=== PATIENT | female | born 1990 | race Caucasian/White ===

== ENCOUNTER 2020-11-06 13:19 | Outpatient (REF) | payer MEDICAID, SELFPAY | END 2020-11-06 13:20 | disposition home or self-care (01) | LOC: HO.LAB 13:19 | PROVIDERS: Visit Provider Internal Medicine | DX: Z20.828 Contact with and (suspected) exposure to other viral communicable diseases (principal) | CPT/HCPCS: C9803; U0003 ==

== ENCOUNTER 2021-02-05 13:09 | Outpatient (REF) | payer MEDICAID, SELFPAY | END 2021-02-05 13:10 | disposition home or self-care (01) | LOC: HO.LAB 13:09 | PROVIDERS: Visit Provider Internal Medicine | DX: Z20.822 Contact with and (suspected) exposure to COVID-19 (principal) | CPT/HCPCS: 36415; C9803; U0003; U0005 ==

== ENCOUNTER 2024-01-22 09:09 | Outpatient (REF) | payer MEDICAID, SELFPAY ==
[2024-01-22 11:30] LABS: Hematocrit 40.3 % (37.0-47.0); Hemoglobin 13.2 g/dl (12.0-16.0); Mean Corpuscular HGB Conc 32.8 g/dl (31.0-35.0); Mean Corpuscular Hemoglobin 28.9 pg (27.0-33.0); Mean Corpuscular Volume 88.4 fL (80.0-98.0); Mean Platelet Volume 10.3 fL (9.4-12.3); Platelet Count 232 X10*3/uL (160-400); Red Blood Count 4.56 X10*6/uL (4.20-5.50); Red Cell Distribution Width 12.6 % (11.0-16.0); White Blood Count 5.8 X10*3/uL (4.8-10.8)
[2024-01-22 11:51] LABS: Estimated Average Glucose 97 mg/dL
[2024-01-22 12:55] LABS: Alanine Aminotransferase 11 U/L (0-31); Albumin Level 3.6 g/dL (3.5-5.0); Alkaline Phosphatase 66 U/L (39-117); Anion Gap 10 (12-20); Aspartate Amino Transferase 15 U/L (5-31); Bilirubin Total 0.3 mg/dL (0.0-1.0); Blood Urea Nitrogen 11 mg/dL (9-16); Carbon Dioxide 28 mmol/L (22-29); Chloride 107 mmol/L (96-108); Cholesterol 164 mg/dL (<200); Estimated Glomerular Filt Rate > 60; Glucose Random 68 mg/dL (60-115); HDL Cholesterol 46 mg/dL (>40); LDL Cholesterol Calculated 104 mg/dL (<100); Potassium 3.9 mmol/L (3.3-5.1); Sodium 141 mmol/L (135-145); Total Protein 7.4 g/dL (6.5-8.0); Triglycerides 72 mg/dL (<150)
[2024-01-22 13:06] LABS: CT PCR NOT DETECTED (Not Detect.); NG PCR NOT DETECTED (Not Detect.)
[2024-01-22 13:13] LABS: TSH reflex Free T4 0.58 uIU/mL (0.32-4.0); Vitamin D 25-OH Total 27.4 ng/mL (>30)
[2024-01-23 03:41] LABS: Syphilis Screen Nonreactive (Nonreactive)
[2024-01-23 04:36] LABS: HBS Num1 60.42 mIU/mL (0-7.99); HBc Num1 0.09 S/CO (0.00-0.79); HBsAGNum1 0.45 S/CO (0.00-0.99); HIV AB/AG Nonreactive (Nonreactive); HIV Num 1 0.06 S/CO (0.00-0.99); Hepatitis B Core Antibody Nonreactive (Nonreactive); Hepatitis B Surface Antigen Negative (Negative); ~HepC Num1 0.14 S/CO (0.00-0.79); ~Hepatitis B Surface Antibody REACTIVE (Nonreactive); ~Hepatitis C Antibody Nonreactive (Nonreactive)
== END 2024-01-22 09:10 | disposition home or self-care (01) ==
LOC: HO.HHCL 09:09
PROVIDERS: Visit Provider Student in an Organized Health Care Education/Training Program
DX: Z00.00 Encounter for general adult medical examination without abnormal findings (principal); Z11.4 Encounter for screening for human immunodeficiency virus [HIV]
CPT/HCPCS: 0353U; 36415; 80053; 80061; 82306; 83036; 84443; 85027; 86704; 86706; 86780; 86803; 87340; 87389

== ENCOUNTER 2024-02-15 14:22 | Outpatient (REF) | payer MEDICAID, SELFPAY ==
--- NOTE | ~2024-02-15 | XR_ITS ---
EXAMINATION: XR CHEST CLINICAL INFORMATION: Preop COMPARISON: None available. TECHNIQUE: 2 views of the chest were obtained. FINDINGS: No significant abnormality is noted involving the heart, lungs, mediastinum, bony thorax or soft tissues. XR/XR chest 2V IMPRESSION: Unremarkable examination.
== END 2024-02-15 14:23 | disposition home or self-care (01) ==
LOC: HO.HHCX 14:22
PROVIDERS: Visit Provider Internal Medicine
DX: Z01.818 Encounter for other preprocedural examination (principal); N62 Hypertrophy of breast
CPT/HCPCS: 71046

== ENCOUNTER 2024-02-19 16:22 | Outpatient (REF) | payer MEDICAID, SELFPAY ==
--- NOTE | ~2024-02-19 | MM_ITS ---
EXAMINATION: MM SCREENING DIGITAL BREAST TOMOSYNTHESIS, BILATERAL CLINICAL INFORMATION: Screening. Asymptomatic. The patient plans breast reduction in the near future. COMPARISON: Mammography: This is a baseline study. TECHNIQUE: Digital breast tomosynthesis is performed in both the craniocaudal and mediolateral oblique views along with computer-aided detection (CAD). Synthesized 2D images are generated from the tomosynthesis. FINDINGS: The breasts are heterogeneously dense, which may obscure small masses (ACR BI-RADS breast composition Category c). There are no significant masses, abnormal calcifications, or other abnormalities. MM/MM tomosynthesis screening BI IMPRESSION: No mammographic evidence of malignancy. ASSESSMENT: BI-RADS BI-RADS 1 - Negative RECOMMENDATION: Routine annual mammography screening. 1 year F/U This examination should not preclude the clinical evaluation of a suspicious palpable abnormality. This patient's information was entered into a reminder system with a target due date for their next mammogram.
== END 2024-02-19 16:23 | disposition home or self-care (01) ==
LOC: HO.MAMMO 16:22
PROVIDERS: PCP Internal Medicine; Visit Provider Internal Medicine
DX: Z12.31 Encounter for screening mammogram for malignant neoplasm of breast (principal)
CPT/HCPCS: 77063; 77067

== ENCOUNTER → 2024-02-19 16:30 | Outpatient (BNV) | payer MEDICAID, SELFPAY | PROVIDERS: PCP Internal Medicine; Visit Provider Radiology Diagnostic Radiology | DX: Z12.31 Encounter for screening mammogram for malignant neoplasm of breast (principal) | CPT/HCPCS: 77063; 77067 ==

== ENCOUNTER 2024-05-02 15:15 | Outpatient (REF) | payer MEDICAID, SELFPAY ==
[2024-05-03 15:27] LABS: Bacterial Vaginosis PCR POSITIVE (Negative); Candida Group PCR DETECTED (Not Detect); Candida glab krusei PCR NOT DETECTED (Not Detect); Trichomonas vaginalis PCR NOT DETECTED (Not Detect)
[2024-05-03 15:56] LABS: CT PCR NOT DETECTED (Not Detect.); NG PCR NOT DETECTED (Not Detect.)
== END 2024-05-02 15:16 | disposition home or self-care (01) ==
LOC: HO.HHCLNP 15:15
PROVIDERS: Visit Provider Internal Medicine
DX: N76.0 Acute vaginitis (principal)
CPT/HCPCS: 0352U; 0353U; 87086

== ENCOUNTER 2024-12-24 16:26 | Emergency (ER) | payer MEDICAID, SELFPAY ==
--- NOTE | ~2024-12-24 | XR_ITS ---
CLINICAL HISTORY: cough, SOB 2 view chest x-ray Comparison: CR/MA/SR - XR CHEST 2V - 02/15/24 14:43 EDT Findings: No consolidation or effusion. Normal size heart. No acute fracture. IMPRESSION: 1. No acute findings. This document has been electronically signed by: Eusebia Cervantes MD on 12/24/2024 18:09:27
--- NOTE | 2024-12-24 16:39 | ECG_ITS ---
Test Reason : PALPITATIONS Blood Pressure : */* mmHG Vent. Rate : 75 BPM Atrial Rate : 75 BPM P-R Int : 144 ms QRS Dur : 82 ms QT Int : 370 ms P-R-T Axes : 47 66 58 degrees QTcB Int : 413 ms Normal sinus rhythm Normal ECG When compared with ECG of 16-Oct-2016 16:48, No significant change was found Referred By: Hina Sheppard Electronically Signed By: David Yeh
[2024-12-24 16:52] VITALS: BP 107/68; PULSE 74; RESP 16; TEMP 36.4; O2SAT 99; BMI 25.4
[2024-12-24 16:53] LABS: MANUAL DIFF FLAG NO
--- OUTSIDE RECORDS SUMMARY | 2024-12-24 16:54 | XMS_ITS | Encounter Summary ---
Author Organization [employer] Address [address] [place] [address] Care Team Providers Care Motor Installer Name Role Phone Whit Adkins MD Primary Care Provider + Encounter Details Date Type Department Care Team ([facility] st Contact Info) Description 01/13/2024 Telephone [facility] [address] [place], [place] [id number] Whit Adkins MD [address] [place] [address] Social History Tobacco Use Types Packs/Day Years Used Date Smoking Tobacco: Never Smokeless Tobacco: Never Alcohol Use Standard Drinks/Week Comments Never 0 (1 standard drink = 0.6 oz pur e alcohol) Depression Answer Date Recorded Patient Health Questionnaire-9 Score 0 01/12/2024 Patient Health Questionnaire-9 Score 0 01/12/2024 Last PHQ-9: Questionnaire Data Not on file 0 01/12/2024 Housing Stability Answer Date Recorded What is your housing situation today? I have robert avina 01/12/[address] you li ve. Do you have problems with any of the following? None of the above 01/12/2024 Food Insecurity Answer Date Recorded Within the past 12 months, y ou worried that your food would run out before you got money to buy more: Never True 01/12/2024 Within the past 12 months,th e food you bought just didn't last and you didn't have enough money to get more: Never True Transportation Answer Date Recorded In the past 12 months, has l ack of transportation kept you from medical appts, meetings, work or from getting things needed for daily living? No 01/12/2024 Utilities Answer Date Recorded In the past 12 months, has t he electric, gas, oil or water company threatened to shut off services in your home? No 01/12/2024 Depression Answer Date Recorded Patient Health Questionnaire-2 Score 0 01/12/2024 Comments No Sex and Gender Information Value Date Recorded Sex Assigned at Female 09/15/2022 10:21 AM EDT Legal Sex Female 10:21 AM EDT Gender Identity Female 09/15/2022 10:21 AM EDT Sexual Orientation Straight 09/15/2022 10 :21 AM EDT documented as of this encounter Plan of Treatment Not on file documented as of this encounter Visit Diagnoses Not on filedocumented in this encounter Additional Health Concerns Assessment Noted Time PHQ-9 Depression Total Score: 0 01/12/20 24 9:11 AM EST documented as of this encounter Care Teams Motor Installer Relationship Specialty Start Date End Date Whit Adkins MD [address] [place] [id number] PCP - General Family Medicine 07/01/17 documented as of this encounter
--- OUTSIDE RECORDS SUMMARY | 2024-12-24 16:54 | XMS_ITS | Clinical Summary ---
Author Organization [employer] Address [address] [place] [address] Care Team Providers Care Warehouse Team Member Name Role Phone Whit Adkins MD Primary Care Provider + Allergies Active Allergy Reactions Criticality Noted Date Comments Ibuprofen Unknown Medications cholecalciferol (Vitamin D3) 25 MCG (1000 UT) tablet TAKE 1 TABLET (25 MCG) BY MOUTH IN THE MORNING 90 tablet 1 4 Active Xulane 150-35 MCG/24HRIndication s:Encounter for other contraceptive management APPLY 1 PATCH EVERY WEEK DIRECTED 12 patch 3 4 Active Active Problems Problem Noted Date Diagnosed Date Preoperative clearance 02/15/2024 Assessment & Plan (02/16/2024 4:36 PM EDT): 33 yo patient with multiple medical conditions here for preop evaluation. Most of her/his medical conditions are stable enough so that she/he can safely undergo planned procedure. She is a LOW risk patient. She's undergoing an LOW risk procedure. The risk of CV complication according to RCRI is 3.9% which is an average risk. At this time SHE IS ON OPTIMAL CONDITION for planned procedure. -No need to adjust meds for surgery. -Additional precaution for perioperative embolism due to patient using hormonal contraceptives, use LMWH. -Call back DEXTER should she develops fever, cough, SOB, CP, UTI sxs or any other acute issue -Labs done by patient at independent lab, she iwll bring her labs -CXR and breast US ordered by Surgeon request. Large breasts 02/15/2024 Assessment & Plan (02/16/2024 4:38 PM EDT): Undergoing bl mastopexy. FU with Plastic surgeon. Acne 02/12/2024 Health care maintenance 01/12/2024 Assessment & Plan (01/12/2024 5:22 PM EST): -contraception: uses xulane patches -pap smear: 2021 neg per pt --states has apt w MARKETING INFORMATION COORDINATOR at [facility] [employer]-Minded per pt to repeat pap smear then 06/2024 -vaccines: s/p COVID 19 x3, offered today last booster but refused ,tdap 2017 , HPV unsure if got-refuse vaccine , Flu vaccine today --labs x annual exam -will RTC in fasting-pt agreed to have STI testing including HIV to have for baseline --will call pt w lab results, otherwise pt will call clinic in 1 week to go over results ---- 09/2022 MMRV immune, Quantiferon neg Recurrent upper respiratory tract infection 12/18 Subcutaneous nodule 01/07/2024 Visual impairment 01/07/2024 Onycholysis 12/25/2022 Tachycardia 02/20/2015 Tingling of skin 02/20/2015 Encounters Date Type Department Care Team Description 10/03/2024 5:00 PM EST Office Visit [facility] [address] [place] [address] Kathryn Alvarado NP Flu-like symptoms (Primary Dx); Sore throat (viral); Periumbilical abdominal pain from Last 3 Months Immunizations Name Administration Dates Next Due Influenza injectable quadriv alent IIV4 with preservative 12/25/2015 Influenza injectable quadriv alent preservative free 01/12/2024,08/15/2022,10/01/2020,2018 Pneumococcal Conjugate PCV 13 10/01/2020 Tdap 07/20/2018 Family History Medical History Relation Name Comments thyroid dx Maternal Grandmother Relation Name Status Comments Maternal Grandmother Social History Tobacco Use Types Packs/Day Years Used Date Smoking Tobacco: Never Smokeless Tobacco: Never Alcohol Use Standard Drinks/Week Comments Never 0 (1 standard drink = 0.6 oz pur e alcohol) Alcohol Answer Date Recorded Frequency of Alcohol Consumption Not on file 02/15/2024 Average Number of Drinks Not on file 024 Frequency of Binge Drinking Not on file 04/0 11/2023 Score 0 02/15/2024 Depression Answer Date Recorded Patient Health Questionnaire-9 [...] Orientation Straight 09/15/2022 10 :21 AM EDT Last Filed Vital Signs Vital Sign Reading Time Taken Comments Blood Pressure 122/80 10/03/2024 5:19 PM EST Pulse 99 10/03/2024 5:19 PM EST Temperature 37.3 ??C (99.2 ??F) 10/03/2024 5:19 PM ES T Respiratory Rate 20 10/03/2024 5:19 PM EST Oxygen Saturation 100% 10/03/2024 5:19 PM EST Inhaled Oxygen Concentration - - Weight 63.7 kg (140 lb 6.4 oz) 10/03/2024 5:19 P M EST Height 157.5 cm (5' 2 ) 10/03/2024 5:19 PM EST Body Mass Index 25.68 10/03/2024 5:19 PM EST Plan of Treatment Health Maintenance Due Date Last Done Comments Family Planning (PISQ) 2005 Hepatitis B Vaccines (1 of 3 - 19+ 3-dose series) 2009 Pap Smear 2011 Cervical Cancer Screening 2020 HPV/Cotest 2020 COVID-19 Vaccine ( season) 2024 11/25/2021, 03/05/2021, 02/11/2021 Influenza Vaccine (#1) 2024 , 08/15/2022, 10/01/2020, Additional history exists Depression Screening 01/12/2025 01/12/2024, 01/12/20 24 Alcohol/Substance Use Screening 02/14/2025 02/15/2024 SDOH Screening 02/14/2025 02/15/2024 Tobacco Screening 10/03/2025 10/03/2024 DTaP/Tdap/Td Vaccines (2 - Td or Tdap) 07/20/2028 07/20/2018 Zoster Vaccines (1 of 2) 2040 RSV Patients and Patients Aged 60 years or older (1 - 1-dose 75+ series) 2065 Pneumococcal Vaccine: Pediatrics (0 to 5 Years) and At-Risk Patients (6 to 49) Years) Aged Out 10/01/2020 No longer eligible based on patient's age to complete this topic HIV Screening Completed 01/22/2024 Hepatitis C Screening Completed 01/22/2024 HIB Vaccines Aged Out No longer eligi ble based on patient's age to complete this topic HPV Vaccines Aged Out No longer eligi ble based on patient's age to complete this topic Hepatitis A Vaccines Aged Out No long er eligible based on patient's age to complete this topic IPV Vaccines Aged Out No longer eligi ble based on patient's age to complete this topic Meningococcal Vaccine Aged Out No smith bruton eligible based on patient's age to complete this topic RSV under 20 months Aged Out No longe r eligible based on patient's age to complete this topic Rotavirus Vaccines Aged Out No longer eligible based on patient's age to complete this topic Procedures Procedure Name Priority Date/Time Associated Diagnosis Comments POCT INFLUENZA A Routine 10/03/2024 5:44 PM EST Sore throat (viral) POCT INFLUENZA B Routine 10/03/2024 5:44 PM EST Sore throat (viral) POCT RAPID STREP A Routine 10/03/2024 5: 23 PM EST Sore throat (viral) POCT RAPID COVID ANTIGEN Routine 10/03/2024 5:23 PM EST Sore throat (viral) HEPATITIS C AB W/REFL TO HCV RNA, QN, PCR Routine 01/22/2024 9:13 AM EST Annual physical exam HIV 1/2 ANTIGEN/ANTIBODY, FOURTH GENERATION W/RFL Routine 01/22/2024 9:13 AM EST Annual physical exam from Last 3 Months or Most Recently Relevant to Health Maintenance Results * POCT Influenza B manually resulted (10/03/2024 5:44 PM EST) Rapid Influenza B Ag Negative Negative, Indeterminate QC Media Lot # [id number] Lot# Expiration Date Swab 10/03/2024 5:44 PM EST [facility] CLINICAL NURSE SPECIALIST POINT OF CARE TEST ENTER/EDIT O RDERABLES Final Result * POCT Influenza A manually resulted (10/03/2024 5:44 PM EST) Rapid Influenza A Ag Negative Negative, Indeterminate QC Media Lot # [id number] Lot# Expiration Date Swab Nasopharyngeal structure / Unknown 10/03/2024 5:44 PM EST [facility] CLINICAL NURSE SPECIALIST POINT OF CARE TEST ENTER/EDIT O RDERABLES Final Result * POCT Rapid COVID Ag (10/03/2024 5:23 PM EST) [facility] Rapid COVID Ag Negative QC Media Lot # [id number] Lot# Expiration Date Swab 10/03/2024 5:23 PM EST [facility] POINT OF CARE TEST ENTER/EDIT O RDERABLES Final Result * (ABNORMAL) POCT rapid strep A manually resulted (10/03/2024 5:23 PM EST) [facility] Rapid Strep A Screen Positive( A) Negative, None Detected QC Media Lot # [id number] Lot# Expiration Date Swab 10/03/2024 5:23 PM EST [facility] ENTER/EDIT O RDERABLES Final Result * Hepatitis C Antibody with Reflex to HCV, RNA, Quantitative, Real-Time PCR (01/22/2024 9:13 AM EST) [facility] Hepatitis C Antibody Nonreactive Nonreactive [facility] Comment:Antibodies to HCV no t detected; does not exclude early acuteHCV infection. Blood Venous blood specimen / Unknown 01/22/2024 9:13 AM EST 01/22/2024 11:29 AM EST Eun Velasco MD LAB BLOOD ORDERAB LES Final Result [facility] [address] [place] [phone] * HIV-1/2 Antigen and Antibodies, Fourth Generation, with Reflexes (01/22/2024 9:13 AM EST) [facility] HIV AB/AG Nonreactive Nonreactive [facility] Comment:HIV-1 p24 Ag and/or HIV-1/HIV-2 Ab not detected.A test result that is nonreactive does not exclude thepossibility of exposure to or infection with HIV-1 and/orHIV-2. Nonreactive results in this assay for individualswith prior exposure to HIV-1 and/or HIV-2 may be due toantigen and antibody levels that are below the limit ofdetection of this assay.The Trip[employer]nity HIV Ag/Ab Combo assay result andsupplemental assay results should be interpreted inconjunction with the patient's clinical presentation,history and other laboratory results. If the results areinconsistent with clinical evidence, additional testing issuggested to confirm the result. Blood Venous blood specimen / Unknown 01/22/2024 9:13 AM EST 01/22/2024 11:29 AM EST us Eun Velasco MD LAB BLOOD ORDERAB LES Final Result [facility] [address] [place] [address] [phone] from Last 3 Months or Most Recently Relevant to Health Maintenance [facility] Care Teams Warehouse Team Member Relationship Specialty Start Date End Date Whit Adkins MD [address] [place] [address] PCP - General Family Medicine 07/01/17
[2024-12-24 16:59] LABS: Basophils Percent Auto 0.5 % (0-2); Hematocrit 38.1 % (37.0-47.0); Hemoglobin 12.7 g/dl (12.0-16.0); Imm Gran Abs Auto 0.01 X10*3/uL (0.00-0.03); Imm Gran Pct Auto 0.2 % (0.0-0.4); Lymphocytes Absolute Auto 1.9 X10*3/uL (1.2-4.9); Lymphocytes Percent Auto 45.6 % (20-40); Mean Corpuscular HGB Conc 33.3 g/dl (31.0-35.0); Mean Corpuscular Hemoglobin 28.4 pg (27.0-33.0); Mean Corpuscular Volume 85.2 fL (80.0-98.0); Mean Platelet Volume 10.1 fL (9.4-12.3); Monocytes Absolute Auto 0.4 X10*3/uL (0.1-1.2); Monocytes Percent Auto 8.6 % (2-11); Neutrophils Absolute Auto 1.8 x10*3/uL (2.0-8.3); Neutrophils Percent Auto 44.1 % (45-73); Platelet Count 174 X10*3/uL (160-400); Red Blood Count 4.47 X10*6/uL (4.20-5.50); White Blood Count 4.2 X10*3/uL (4.8-10.8)
--- NOTE | 2024-12-24 17:03 | ED_ITS ---
HPI - General Adult General Chief complaint: Upper Respiratory Symptoms Stated complaint: palpitations Time Seen by Provider: 12/24/24 18:12 Source: patient Mode of arrival: ambulatory Limitations: no limitations History of Present Illness ED Provider: Dr. Yolanda Davis HPI narrative: patient comes to the emergency room complaining of 5 days of cough, congestion, headaches, generalized malaise. Denies chest pain or shortness of breath, denies nausea vomiting or diarrhea Related Data Previous Rx's ?Medication ?Instructions ?Recorded acetaminophen 500 mg tablet 500 mg PO Q6H PRN fever or pain 12/24/24 #30 tabs Allergies Allergy/AdvReac Type Severity Reaction Status Date / Time ibuprofen [From ADVIL] Allergy Unknown RASH Verified 12/24/24 16:55 Advil Allergy Unknown hives Uncoded 10/24/11 00:00 Review of Systems 2 Review of Systems: Constitutional : No Weight loss, No Fever, complaining of chills, fatigue and generalized malaise ENT/Mouth : No Hearing loss, No Ear Pain, No Nasal Congestion, No Sinus Pain, No Hoarseness, No sore throat, No Rhinorrhea, No Swallowing Difficulty Eyes: No Eye Pain, No Swelling, No Redness, No Foreign Body, No Discharge, No Vision Changes Cardiovascular : No Chest Pain, No SOB, No Dyspnea on Exertion, No Orthopnea, No Edema, No Palpitations Respiratory : complaining of dry cough No Wheezing, No Smoke Exposure, No Dyspnea Gastrointestinal : No Nausea, No Vomiting, No Diarrhea, No Constipation, No abdominal Pain, No Hematochezia, No Melena Genitourinary : no irregular bleeding, No Dysuria, No Urinary Frequency, No Hematuria, No Urinary Incontinence, No Urgency, No Flank Pain, No Urinary Flow Changes, No Hesitancy Musculoskeletal : No joint pain, No Myalgias, No Joint Swelling Skin : No Skin Lesions, No rash Neuro : No Weakness, No Numbness, No Paresthesias, No Loss of Consciousness, No Dizziness, No Headache Psych : No Anxiety/Panic, No Depression, No SI/HI/AH/VH, No Social Issues, Heme/Lymph: No Bruising, No Bleeding,No Lymphadenopathy Endocrine : No Polyuria, No Polydipsia, No Temperature Intolerance PMFSH Social History Social History Advance Directives: No Advance Directives Information Provided: No Physical Exam ED Vital Signs: Vital Signs - 24 hr 12/24/24 16:52 Temperature 97.6 F Pulse Rate 74 Respiratory Rate 16 Blood Pressure 107/68 Pulse Oximetry 99 Oxygen Delivery Method Room Air BMI result Body Mass Index 25.4 Const Other: Appearance: Alert. Oriented X3. No acute distress. Eyes: Pupils equal, round and reactive to light. ENT: Pharynx normal. Neck: Normal inspection. Neck supple. No lymph nodes noted. No crepitus CVS: Normal heart rate and rhythm. Pulses normal. Normal S1 and S2 Respiratory: No respiratory distress. Breath sounds normal. No Wheezing. No rales Abdomen: Soft and nontender. No rigidity. No distention. Skin: Skin warm and dry. Normal skin color. Normal skin turgor. Extremities: No lower extremity edema. No Lacerations. No Rash Neuro: Oriented X 3. No motor deficit. No sensory deficit. Moving all extremities. No slurred speech. CN 2 through 12 grossly intact Psych: calm, cooperative, normal affect Course Course Course Narrative: RME performed by Hina Sheppard PA-C. Patient is a 34 year old assigned female at presenting to the emergency department with a cough, chills, headache, body aches, and chest pressure. Detailed physical exam and review of systems are deferred to the triage rn. EKG, labs, imaging, and swabs ordered. Patient placed back in the waiting room pending room availability and results. Medical Decision Making Medical Decision Making [facility] Narrative: my interpretation of labs: Patient tested positive for influenza B, no significant abnormality in patient's white blood cell count and chemistry, hCG negative x-ray does not show any acute abnormality Lab Data [facility] Lab Attestation statement: I reviewed the patient's lab results. 12/24/24 16:48 12/24/24 16:48 Labs: Lab Results 12/24/24 Range/Units 16:48 WBC 4.2 L (4.8-10.8) X10*3/uL RBC 4.47 (4.20-5.50) X10*6/uL Hgb 12.7 (12.0-16.0) g/dl Hct 38.1 (37.0-47.0) % MCV 85.2 (80.0-98.0) fL MCH 28.4 (27.0-33.0) pg MCHC 33.3 (31.0-35.0) g/dl RDW 13.0 (11.0-16.0) % Plt Count 174 (160-400) X10*3/uL MPV 10.1 (9.4-12.3) fL Immature Gran % (Auto) 0.2 (0.0-0.4) % Neut % (Auto) 44.1 L (45-73) % Lymph % (Auto) 45.6 H (20-40) % [place] % (Auto) 8.6 (2-11) % Eos % (Auto) 1.0 (0-4) % Baso % (Auto) 0.5 (0-2) % Lymph # (Auto) 1.9 (1.2-4.9) X10*3/uL [place] # (Auto) 0.4 (0.1-1.2) X10*3/uL Eos # (Auto) 0.0 (0.0-0.4) X10*3/uL Baso # (Auto) 0.0 (0.0-0.2) X10*3/uL Abs Immat Gran (auto) 0.01 (0.00-0.03) X10*3/uL Absolute Neuts (auto) 1.8 L (2.0-8.3) x10*3/uL Absolute Nucleated RBC 0.000 (0.0-0.012) X10*3/uL Nucleated RBC % (auto) 0.0 (0.0-0.2) /100WBC PT 11.7 (10.9-12.4) SEC INR 1.0 (0.9-1.1) APTT 31.2 (26.0-36.8) SEC Sodium 139 (135-145) mmol/L Potassium 3.6 (3.3-5.1) mmol/L Chloride 108 (96-108) mmol/L Carbon Dioxide 25 (22-29) mmol/L Anion Gap 10 L (12-20) BUN 9 (9-16) mg/dL Creatinine 0.71 (0.5-1.4) mg/dL Estim Creat Clear Calc 97.4 Estimated GFR > 60 Random Glucose 69 (60-115) mg/dL Calcium 8.6 (8.4-10.2) mg/dL Magnesium 1.7 (1.6-2.6) mg/dL Total Bilirubin 0.2 (0.0-1.0) mg/dL AST 20 (5-31) U/L ALT 10 (0-31) U/L Alkaline Phosphatase 58 (39-117) U/L Troponin I High Sens < 2.7 (<3.5-17.0) ng/L Total Protein 7.2 (6.5-8.0) g/dL Albumin 3.4 L (3.5-5.0) g/dL Beta HCG, Quant < 2 mIU/mL Influenza Type A (PCR) NEGATIVE (Negative) Influenza Type B (PCR) POSITIVE A (Negative) RSV RNA Qual (PCR) NEGATIVE (Negative) SARS-CoV-2 RNA (RT-PCR) NEGATIVE (Negative) S. pyogenes GrpA LENA Negative (Negative) Independent Interpretation I performed an independent interpretation of an: Plain X-Ray Radiology Impression Discussion of test interpretation with radiology: I have reviewed the radiologist's reading. Radiologist Impression: No consolidation or effusion. Normal size heart. No acute fracture. IMPRESSION: 1. No acute findings. Discharge Plan Discharge Clinical Impression: Influenza B Patient Disposition: Home, Self-Care Instructions: Influenza (ED) Additional Instructions: Please follow-up with your primary care physician tomorrow. If you have any worsening or new symptoms, please return to the emergency room or call 911 Prescriptions: New acetaminophen 500 mg tablet 500 mg PO Q6H PRN (Reason: fever or pain) Qty: 30 0RF Stand Alone Forms: Work/School Release Print Language: Andorran
[2024-12-24 17:15] LABS: Prothrombin Time 11.7 SEC (10.9-12.4)
[2024-12-24 17:17] LABS: Partial Thromboplastin Time 31.2 SEC (26.0-36.8)
[2024-12-24 17:21] LABS: IDNOW Serial# 58CA691E; Strep A Nucleic Acid Negative (Negative)
[2024-12-24 17:22] LABS: Alanine Aminotransferase 10 U/L (0-31); Albumin Level 3.4 g/dL (3.5-5.0); Alkaline Phosphatase 58 U/L (39-117); Anion Gap 10 (12-20); Aspartate Amino Transferase 20 U/L (5-31); Bilirubin Total 0.2 mg/dL (0.0-1.0); Blood Urea Nitrogen 9 mg/dL (9-16); Calcium 8.6 mg/dL (8.4-10.2); Carbon Dioxide 25 mmol/L (22-29); Chloride 108 mmol/L (96-108); Creatinine Clr Calc Pharmacy 97.4; Estimated Glomerular Filt Rate > 60; Glucose Random 69 mg/dL (60-115); Magnesium 1.7 mg/dL (1.6-2.6); Potassium 3.6 mmol/L (3.3-5.1); Sodium 139 mmol/L (135-145); Total Protein 7.2 g/dL (6.5-8.0)
[2024-12-24 17:24] LABS: HCG Quantitative < 2 mIU/mL; Troponin-I High Sensitivity < 2.7 ng/L (<3.5-17.0)
[2024-12-24 17:34] LABS: Influenza A PCR NEGATIVE (Negative); Influenza B PCR POSITIVE (Negative); Resp Syncy Virus RNA Qual PCR NEGATIVE (Negative); SARS COV2 PCR INHOUSE NEGATIVE (Negative)
[2024-12-24 18:47] VITALS: BP 107/68; PULSE 74; RESP 16; TEMP 36.4; O2SAT 99
== END 2024-12-24 18:47 | disposition home or self-care (01) ==
PROVIDERS: Physician Assistant Medical; Emergency Provider Emergency Medicine; PCP Internal Medicine
DX: J10.1 Influenza due to other identified influenza virus with other respiratory manifestations (principal); R05.9 Cough, unspecified; Z03.818 Encounter for observation for suspected exposure to other biological agents ruled out
CPT/HCPCS: 0241U; 71046; 80053; 83735; 84484; 84702; 85025; 85610; 85730; 87651; 93005; 99283

== ENCOUNTER → 2024-12-24 16:39 | Outpatient (BNV) | payer MEDICAID, SELFPAY | PROVIDERS: Emergency Provider Emergency Medicine; PCP Internal Medicine; Visit Provider Radiology Diagnostic Radiology | DX: R05.9 Cough, unspecified (principal); R06.02 Shortness of breath | CPT/HCPCS: 71046 ==

== ENCOUNTER → 2024-12-24 16:39 | Outpatient (BNV) | payer MEDICAID, SELFPAY | PROVIDERS: Emergency Provider Emergency Medicine; PCP Internal Medicine; Visit Provider Internal Medicine Cardiovascular Disease | DX: R00.2 Palpitations (principal) | CPT/HCPCS: 93010 ==

== ENCOUNTER 2025-03-19 15:41 | Emergency (ER) | payer MEDICAID, SELFPAY ==
[2025-03-19 15:45] VITALS: BP 97/60; PULSE 74; RESP 16; TEMP 36.5; O2SAT 98; BMI 24.9
--- NOTE | 2025-03-19 15:46 | ED_ITS ---
HPI - Nausea/Vomiting/Diarrhea General Chief complaint: Nausea/Vomiting/Diarrhea Stated complaint: dizziness/diarrhea, body aches Time Seen by Provider: 03/19/25 18:39 Source: patient Mode of arrival: ambulatory Limitations: no limitations History of Present Illness ED Provider: Lakia Mathews NP HPI Narrative: Patient is a 35-year-old female who presents emergency department for evaluation. She reports over the past 3 days she has been experiencing generalized abdominal discomfort s/p vomiting and multiple bouts of diarrhea. She reports that today she has had only a single episode of vomiting and 2 episodes of watery diarrhea. She is not able to tolerate any oral intake without vomiting soon thereafter. She reports that she just traveled back from [place] but denies any known sick contacts. Has associated tactile fever but has not checked a temperature. Today she is feeling dizzy particularly with position change but does admit that she has not really had much oral intake. Denies chest pain, shortness of breath, hematemesis, constipation, hematochezia, melena, dysuria, urinary frequency, urinary urgency, urinary hesitancy, hematuria. denies pelvic pain or abnormal vaginal discharge. Denies concern for sexually transmitted infection. Denies concern for . Related Data Previous Rx's ?Medication ?Instructions ?Recorded acetaminophen 500 mg tablet 500 mg PO Q6H PRN fever or pain 12/24/24 #30 tabs ondansetron 4 mg disintegrating 4 mg PO Q8H PRN nausea and 03/19/25 tablet vomiting #10 tabs Allergies Allergy/AdvReac Type Severity Reaction Status Date / Time ibuprofen [From ADVIL] Allergy Unknown RASH Verified 03/19/25 15:51 Advil Allergy Unknown hives Uncoded 03/19/25 15:51 Review of Systems 2 Review of Systems: Yes all other systems are reviewed and are negative PMFSH Past Medical History Attestation statement: The following information was validated with the patient. Source: old records reviewed Social History Social History Smoked in Last 30 Days: No Use of substances other than those prescribed or required for medical reasons: No Advance Directives: No Advance Directives Information Provided: No Patient : No Physical Exam 2 Vital Signs: Vital Signs: Last Vital Signs Temp 96.9 F 03/19/25 19:21 Pulse 70 03/19/25 19:21 Resp 16 03/19/25 19:21 BP 95/47 L 03/19/25 19:21 Pulse Ox 98 03/19/25 19:21 O2 Del Method Room Air 03/19/25 19:21 BMI result Body Mass Index 24.9 Appearance: Alert.?Oriented to person, place and time. No acute distress.?Normal affect.?? Neck: Normal inspection.? Neck supple.?? CVS: Heart sounds normal. Normal heart rate and rhythm.? Pulses normal.?? Respiratory: No respiratory distress.? Lung sounds clear to auscultation bilaterally?? Abdomen: Soft and non-tender. No rebound tenderness at McBurney's point. Negative psoas sign. Negative Rovsing sign. Negative Choi sign. No CVAT. Normoactive bowel sounds. No pulsatile mass.?? Skin: Skin warm and dry.? Normal skin color.? Extremities: No lower extremity edema.? Neuro: Moves all extremities spontaneously. Sensation intact bilaterally. Ambulates with normal steady gait. Course Course Course Narrative: This is an RME: Additional HPI, ROS, PE not included below will be deferred to primary provider. RME assessment and note performed by: Chelsea Delgado PA-C This is a [id number]-female, with no known medical problems, who presents to the ER with a complaint of abdominal pain, nausea, vomiting and diarrhea. Just traveled back from [place]. Reporting fevers on thursday. No sick contacts. No bloody or black stool. No hemotypsis. Reporting dizziness which occurs with positional changes. Plan: Labs, UA, EKG, further ER eval needed Medications Administered Discontinued Medications Generic Name Dose Route Start Last Admin Trade Name Caitlin PRN Reason Stop Dose Admin Famotidine 20 mg 03/19/25 19:00 03/19/25 19:04 Famotidine/Pf 20 Mg/2 Ml Vial IVPUSH 03/19/25 19:01 20 mg ONCE ONE Administration Sodium Chloride 1,000 mls @ 999 mls/hr 03/19/25 19:00 03/19/25 19:51 Ns IV 03/19/25 20:00 Infused .Q1H1M MARLIN Infusion Ondansetron HCl 4 mg 03/19/25 19:00 03/19/25 19:04 Ondansetron Hcl 4 Mg/2 Ml Vial IVPUSH 03/19/25 19:01 4 mg ONCE ONE Administration Medical Decision Making Medical Decision Making [facility] Narrative: Patient is a 35-year-old female with a reported past medical history who presents emergency department for evaluation of nausea vomiting diarrhea over the past 4 days generalized abdominal pain described as cramping after symptom onset. Has not had much oral intake, today is experiencing dizziness particularly with position change, I suspect this is likely due to dehydration lack of oral intake. Orthostatic vital signs were obtained and are negative but she was however symptomatic. She arrives without signs of systemic toxicity afebrile without tachycardia. She has no tachypnea or hypoxia, endorses no shortness of breath or chest pain, no lung sounds are clear to the apices bilaterally, lower suspicion for respiratory infection/pneumonia. She had serum labs obtained prior to my assumption of care CBC is without leukocytosis, left shift, no anemia or thrombocytopenia. No electrolyte derangement. No CHALINO urinalysis without compelling evidence to suggest acute UTI, and she is asymptomatic, no CVA tenderness to suggest renal colic. LFTs and lipase are unremarkable, low suspicion for acute hepatobiliary etiology and has benign abdominal examination. HCG is negative. High sensitive troponin is below detectable limits, EKG revealing normal sinus rhythm with ventricular rate of 73, QTC 414, no ST-elevation, no acute ischemic changes do not suspect ACS as etiology for symptoms. Denies excessive alcohol consumption, history of diabetes, lower suspicion acute pancreatitis. No rebound tenderness at McBurney's point, rigidity, guarding to suggest acute appendicitis. No tenderness of the left lower quadrant hematochezia or melena to suggest diverticulitis or GI bleed. No appreciable hernia to suggest strangulation/incarceration. Receive 1 L normal saline IV fluid, from IV, Zofran IV re-evaluation and p.o. trial. I suspect that she has a self-limited gastrointestinal illness at this time. Differential Diagnosis Differential Diagnoses: The differential diagnosis associated with the presentation includes (See narrative above) Admission/Observation Consideration of admission/observation: Escalation of care including admission/observation considered (See narrative above ) Lab Data [facility] Lab Attestation statement: I reviewed the patient's lab results. (See narrative above) 03/19/25 16:11 03/19/25 16:11 Labs: Lab Results 03/19/25 03/19/25 Range/Units 16:11 16:31 WBC 5.8 (4.8-10.8) X10*3/uL RBC 4.60 (4.20-5.50) X10*6/uL Hgb 13.4 (12.0-16.0) g/dl Hct 39.3 (37.0-47.0) % MCV 85.4 (80.0-98.0) fL MCH 29.1 (27.0-33.0) pg MCHC 34.1 (31.0-35.0) g/dl RDW 12.8 (11.0-16.0) % Plt Count 189 (160-400) X10*3/uL MPV 9.7 (9.4-12.3) fL Immature Gran % (Auto) 0.2 (0.0-0.4) % Neut % (Auto) 56.6 (45-73) % Lymph % (Auto) 34.3 (20-40) % Terrell % (Auto) 7.6 (2-11) % Eos % (Auto) 1.0 (0-4) % Baso % (Auto) 0.3 (0-2) % Lymph # (Auto) 2.0 (1.2-4.9) X10*3/uL Terrell # (Auto) 0.4 (0.1-1.2) X10*3/uL Eos # (Auto) 0.1 (0.0-0.4) X10*3/uL Baso # (Auto) 0.0 (0.0-0.2) X10*3/uL Abs Immat Gran (auto) 0.01 (0.00-0.03) X10*3/uL Absolute Neuts (auto) 3.3 (2.0-8.3) x10*3/uL Absolute Nucleated RBC 0.000 (0.0-0.012) X10*3/uL Nucleated RBC % (auto) 0.0 (0.0-0.2) /100WBC Sodium 139 (135-145) mmol/L Potassium 3.8 (3.3-5.1) mmol/L Chloride 107 (96-108) mmol/L Carbon Dioxide 25 (22-29) mmol/L Anion Gap 11 L (12-20) BUN 8 L (9-16) mg/dL Creatinine 0.65 (0.5-1.4) mg/dL Estim Creat Clear Calc 104.4 Estimated GFR > 60 Random Glucose 100 (60-115) mg/dL Calcium 8.3 L (8.4-10.2) mg/dL Magnesium 2.0 (1.6-2.6) mg/dL Total Bilirubin 0.1 (0.0-1.0) mg/dL Direct Bilirubin < 0.2 (0.0-0.5) mg/dL AST 22 (5-31) U/L ALT 11 (0-31) U/L Alkaline Phosphatase 64 (39-117) U/L Troponin I High Sens < 2.7 (<3.5-17.0) ng/L Total Protein 7.0 (6.5-8.0) g/dL Albumin 3.4 L (3.5-5.0) g/dL Lipase 25 (8-78) U/L Beta HCG, Quant < 2 mIU/mL Urine Color Yellow Urine Appearance Clear Urine pH 7.0 (5.0-9.0) Ur Specific [place] 1.010 (1.005-1.025) Urine Protein 30 (1+) H (Neg-Trace) mg/dL Urine Glucose (UA) Negative (Negative) mg/dL Urine Ketones Trace (Negative) mg/dL Urine Blood Small (1+) H (Negative) Urine Nitrite Negative (Negative) Ur Leukocyte Esterase Negative (Negative) Urine RBC 0-2 (0-2) /HPF Urine WBC 0-5 (0-5) /HPF Ur Squamous Epith Cells 0-2 (0-2) /HPF Urine Bacteria 1+ (None Seen) Hyaline Casts 0-2 (0-2) /LPF C. difficile Tox B Gene NEGATIVE (Negative) Influenza Type A (PCR) NEGATIVE (Negative) Influenza Type B (PCR) NEGATIVE (Negative) RSV RNA Qual (PCR) NEGATIVE (Negative) SARS-CoV-2 RNA (RT-PCR) NEGATIVE (Negative) Independent Historian Clinical information obtained from an independent historian. History obtained from or confirmed by: Parent External Record Review External record reviewed: Outpatient record Discharge Plan Discharge Clinical Impression: Gastroenteritis Patient Disposition: Home, Self-Care Instructions: Gastroenteritis (ED) Additional Instructions: Introduce a bland diet including crackers, bananas, rice, soup, toast, and boiled vegetables. This may progress to plain baked or boiled chicken or turkey. Avoid dairy products or foods high in fat or grease. Zofran as needed for nausea. Be sure that you are staying well hydrated, as discussed, if the Gatorade is causing stomach upset you may try diluting it half and half with water as this may make it more tolerable for you. Follow-up with primary care doctor. Return with any new or worsening symptoms or concerns. Prescriptions: New ondansetron 4 mg tablet,disintegrating 4 mg PO Q8H PRN (Reason: nausea and vomiting) Qty: 10 0RF No Action acetaminophen 500 mg tablet 500 mg PO Q6H PRN (Reason: fever or pain) Qty: 30 0RF Referrals: Whit Adkins MD [Primary Care Provider] - Print Language: Portuguese
--- NOTE | 2025-03-19 15:59 | ECG_ITS ---
Test Reason : DIZZINESS Blood Pressure : */* mmHG Vent. Rate : 73 BPM Atrial Rate : 73 BPM P-R Int : 154 ms QRS Dur : 82 ms QT Int : 376 ms P-R-T Axes : 28 61 57 degrees QTcB Int : 414 ms Normal sinus rhythm Normal ECG When compared with ECG of 24-Dec-2024 16:44, No significant change was found Referred By: Chelsea Delgado Electronically Signed By: JEN CARLSON
[2025-03-19 16:16] LABS: MANUAL DIFF FLAG NO
--- OUTSIDE RECORDS SUMMARY | 2025-03-19 16:16 | XMS_ITS | Clinical Summary ---
Author Organization [employer] Address [address] [facility] [address] [place] [address] Care Team Providers Care Spinneret Cleaner Name Role Phone Whit Adkins MD Primary Care Provider + Allergies Active Allergy Reactions Criticality Noted Date Comments Ibuprofen Unknown Medications cholecalciferol (Vitamin D3) 25 MCG (1000 UT) tablet TAKE 1 TABLET (25 MCG) BY MOUTH IN THE MORNING 90 tablet 1 4 Active triamcinolone (Kenalog) 0.1 % creamIndications:R simón Apply topically if needed in the morning and at bedtime (pain and swelling). 30 g 2 5 Active Xulane 150-35 MCG/24HRIndication s:Encounter for other contraceptive management APPLY 1 PATCH EVERY WEEK DIRECTED 12 patch 3 5 Active Active Problems Problem Noted Date Diagnosed Date Encounter for preventive care 02/17/2025 Assessment & Plan (02/17/2025 10:17 AM EDT): See HPI Cervical cancer screening 02/17/2025 Encounter for vision screening 02/17/2025 Rash 02/17/2025 Assessment & Plan (02/17/2025 10:17 AM EDT): I will prescribe preparation triamcinolone cream she can apply it twice a day no more than 2 weeks Preoperative clearance 02/15/2024 Assessment & Plan (02/16/2024 [...] neg per pt --states has apt w [facility] at [facility] per pt to repeat pap smear then 06/2024 -vaccines: s/p COVID 19 x3, offered today last booster but refused ,tdap 2018 , HPV unsure if got-refuse vaccine , [...] Encounters Date Type Department Care Team Description 03/02/2025 Telephone [facility] [address] [place] [address] Whit Adkins MD 02/21/2025 Orders Only [facility] [address] [place] [address] Whit Adkins MD Visual impairment (Primary Dx) 02/20/2025 Telephone [facility] [address] [place] [address] Whit Adkins MD Results 02/17/2025 9:00 AM EDT Office Visit [address] [address] Eun Parisi MD Encounter for preventive care (Primary Dx); Cervical cancer screening; Encounter for vision screening; Rash; Encounter for other contraceptive management; Encounter for immunization 02/17/2025 Travel 02/09/2025 Patient Outreach [address] [address] Whit Adkins MD Pre-visit Planning (SDOH screening negative and tobacco screening negative) 01/27/2025 Population Health Risk Score [facility] ([facility]) Department [address] [place] [phone] Provider, Population Health Generic 01/05/2025 Telephone [facility] [address] [place] [phone] Whit Adkins MD Referral 12/24/2024 Orders Only GENERIC EXTERNAL DATA DEPARTMENT Provider, Generic External Data from Last 3 Months Immunizations Name Administration Dates Next Due Influenza injectable quadriv alent IIV4 with preservative 12/25/2015 Influenza injectable quadriv alent preservative free 01/12/2024,08/15/2022,10/01/2020,2018 Influenza, seasonal, injecta ble, preservative free 02/17/2025 Pneumococcal Conjugate PCV 13 10/01/2020 Tdap 07/20/2018 Family History Medical History Relation Name Comments thyroid dx Maternal Grandmother Relation Name Status Comments Maternal Grandmother Social History Tobacco Use Types Packs/Day Years Used Date Smoking Tobacco: Never Smokeless Tobacco: Never Tobacco Cessation:Counseling Given: Not Answered Alcohol Use Standard Drinks/Week Comments Never 0 (1 standard drink = 0.6 oz pur e alcohol) Alcohol Answer Date Recorded Frequency of Alcohol Consumption Not on file 02/15/2024 Average Number of Drinks Not on file 024 Frequency of Binge Drinking Not on file 11/2023 Score 0 02/15/2024 Depression Answer Date Recorded Patient Health Questionnaire-9 Score 1 02/17/2025 Patient Health Questionnaire-9 Score 1 02/17/2025 Last PHQ-9: Questionnaire Data Not on file 0 02/17/2025 Housing Stability Answer Date Recorded What is [...] Date Recorded Patient Health Questionnaire-2 Score 0 02/17/2025 Internet Access Answer Date Recorded Internet Access Q1 Yes 02/09/2025 Internet Access Q2 Not on file 02/09/2025 Comments No Sex and Gender Information Value Date Recorded Sex Assigned at Female 09/15/2022 10:21 AM EDT Legal Sex Female 10:21 AM EDT Gender Identity Female 09/15/2022 10:21 AM EDT Sexual Orientation Straight 09/15/2022 10 :21 AM EDT Last Filed Vital Signs Vital Sign Reading Time Taken Comments Blood Pressure 114/67 02/17/2025 9:16 AM EDT Pulse 72 02/17/2025 9:16 AM EDT Temperature 36.4 ??C (97.6 ??F) 02/17/2025 9:16 AM ED T Respiratory Rate 16 02/17/2025 9:16 AM EDT Oxygen Saturation 100% 10/03/2024 5:19 PM EST Inhaled Oxygen Concentration - - Weight 62.9 kg (138 lb 9.6 oz) 02/17/2025 9:16 A M EDT Height 157.5 cm (5' 2 ) 02/17/2025 9:16 AM EDT Body Mass Index 25.35 02/17/2025 9:16 AM EDT Plan of Treatment Health Maintenance Due Date Last Done Comments Alcohol/Substance Use Screening 2002 Family Planning (PISQ) 2005 Hepatitis B Vaccines (1 of 3 - 19+ 3-dose series) 2009 Pap Smear 2011 Cervical Cancer Screening 2020 HPV/Cotest 2020 COVID-19 Vaccine ( - 2023- season) 2024 11/25/2021, 03/05/2021, 02/11/2021 SDOH Screening 02/09/2026 02/09/2025 Depression Screening 02/17/2026 02/17/2025, 02/18/20 Tobacco Screening 02/17/2026 02/17/2025 DTaP/Tdap/Td Vaccines (2 - Td or Tdap) [...] Completed 01/22/2024 Hepatitis C Screening Completed 01/22/2024 Influenza Vaccine Completed 02/17/2025, , 08/15/2022, Additional history exists HIB Vaccines Aged Out No longer eligi [...] topic Meningococcal Vaccine Aged Out No smith burton eligible based on patient's age to complete this topic RSV under 20 months Aged Out No longe r eligible based on patient's age to complete this topic Rotavirus Vaccines Aged Out No longer eligible based on patient's age to complete this topic Procedures Procedure Name Priority Date/Time Associated Diagnosis Comments XR CHEST 2 VIEWS Routine 12/24/2024 6:09 PM EST HIGH SENSITIVITY TROPONIN I Routine 12/24/2024 4:48 PM EST HCG, TOTAL, QN Routine 12/24/2024 4:48 PM EST MAGNESIUM Routine 12/24/2024 4:48 PM EST COMPREHENSIVE METABOLIC PANEL Routine 12/24/2024 4:48 PM EST APTT Routine 12/24/2024 4:48 PM EST PROTHROMBIN TIME-INR Routine 12/24/2024 4:48 PM EST CBC WITH AUTO DIFFERENTIAL Routine 12/24/2024 4:48 PM EST SARS COV2/INFLUENZA A/B AND RSV RNA QL NAAT Routine 12/24/2024 4:48 PM EST STREP A NUCLEIC ACID Routine 12/24/2024 4:48 PM EST HEPATITIS C AB W/REFL TO HCV RNA, QN, PCR Routine 01/22/2024 9:13 AM EST Annual physical exam HIV 1/2 ANTIGEN/ANTIBODY, FOURTH GENERATION W/RFL Routine 01/22/2024 9:13 AM EST Annual physical exam from Last 3 Months or Most Recently Relevant to Health Maintenance Results * XR Chest 2 Views (12/24/2024 6:09 PM EST) Anatomical Region Laterality Modality Chest Radiographic Roma ging 12/24/2024 6:09 PM EST Narrative 12/24/2024 6:10 PM EST ? [facility] ?[address] ?[place] [address] ?XRay Report ? Signed ? Patient: Colon Jamison,Mignely ?MR#: ?? [id number] ? : 1990 ?Acct:[id number] ? Age/Sex: 34 / F ?ADM Date: 02/08/25 ? Loc: HO.ED ? Attending Dr: ? Ordering Physician: Hina Sheppard ?? Date of Service: 12/24/24 ?? Procedure(s): XR chest 2V ?? Accession Number(s): [id number] ? cc: Whit Adkins MD; Hina Sheppard ? CLINICAL HISTORY: cough, SOB ? 2 view chest x-ray ? Comparison: CR/MD/SR - XR CHEST 2V - 02/15/24 14:43 EDT ? Findings: ?? No consolidation or effusion. ?? Normal size heart. ?? No acute fracture. ? IMPRESSION: ?? 1. No acute findings. ? This document has been electronically signed by: Eusebia Cervantes MD on ?? 12/24/2024 18:09:27 ? Dictated By: ?Eusebia Cervantes MD ? Signed By: ?<Electronically signed by Eusebia Cervantes MD in OV> ?12/24/24 1810 ? DD/ 1809 ? TD/TT: 12/24/24 1809 ? City Bailiff: ? Procedure Note Zina, Image - 12/24/2024 [place] [address] XRay Report Signed Patient: Kerri Tamez#: [id number] : 1990Acct:[id number] Age/Sex: 34 / FADM Date: 12/24/24 Loc: HO.ED Attending Dr: Ordering Physician: Hina Sheppard Date of Service: 12/24/24 Procedure(s): XR chest 2V Accession Number(s): [id number] cc: Whit Adkins MD; Hina Sheppard CLINICAL HISTORY: cough, SOB 2 view chest x-ray Comparison: CR/MD/SR - XR CHEST 2V - 02/15/24 14:43 EDT Findings: No consolidation or effusion. Normal size heart. No acute fracture. IMPRESSION: 1. No acute findings. This document has been electronically signed by: Eusebia Cervantes MD on 12/24/2024 18:09:27 Dictated By: Eusebia Cervantes MD Signed By: <Electronically signed by Eusebia Cervantes MD in OV> 12/24/24 1810 DD/ 180 TD/TT: 12/24/24 180 City Bailiff: [facility] External Provider IMG XR PROCEDURES Edited Result - Final * Strep A Nucleic Acid (12/24/2024 4:48 PM EST) IDNOW SERIAL# [id number] [facility] Strep A Nucleic Acid Negative Negative [facility] Comment:All test results mus t be correlated with clinical findings.This test has not been evaluated for monitoring treatment ofinfection.Additional follow-up testing using the culture method isrequired if the result is negative and clinical symptomspersist, or in the event of an acute rheumatic feveroutbreak. 12/24/2024 4:48 PM EST 12/24/2024 4:51 PM EST Generic External Data Provider LAB MICROBIOLOGY - GENERAL ORDERABLES Final Result Performing Organization Address [facility] Co de Phone Number [facility] [address] [place] [phone] * High Sensitivity Troponin I (12/24/2024 4:48 PM EST) TROPONIN I HIGH SENSITIVITY <2.7 <3.5 - 17.0 ng/L [facility] Comment:The Keys high sens itivity Troponin-I results should beused in conjunction with other diagnostic information suchas ECG, clinical observations and information, and patientsymptoms to aid in the diagnosis of [place]. 12/24/2024 4:48 PM EST 12/24/2024 4:51 PM EST Generic External Data Provider LAB BLOOD ORDERAB LES Final Result Performing Organization Address [facility] Co de Phone Number [facility] [address] [place] [phone] * (ABNORMAL) SARS-CoV-2 RNA, Influenza A/B, and RSV RNA, Ql NAAT (12/24/2024 4:48 PM EST) [facility] Influenza A PCR NEGATIVE Negative [facility] Influenza B PCR POSITIVE(A) Negative [facility] Resp Syncy Virus RNA Qual PCR NEGATIVE Negative [facility] SARS COV2 PCR NEGATIVE Negative [facility] Comment:All test results mus t be correlated with clinical findings.Negative results do not preclude SARS-CoV2, influenza Avirus, influenza B virus and/or RSV infectionand should not be used as the sole basis for treatment orother patient management decisions. Negative results must becombined with clinical observations, patient history, andepidemiological information.This test has not been evaluated for monitoring treatment ofinfection.This test has been authorized by the FDA under an EmergencyUse Authorization (EUA) for use by authorized laboratories.Testing performed on the NOTIK GeneXpert utilizingreal-time RT-PCR.All SARS CoV2 and positive influenza A/B results arereported to [facility]. 12/24/2024 4:48 PM EST 12/24/2024 4:51 PM EST us Generic External Data Provider LAB MICROBIOLOGY - GENERAL ORDERABLES Final Result [facility] [address] [place] [phone] * (ABNORMAL) CBC auto differential (12/24/2024 4:48 PM EST) [facility] White Blood Count 4.2(L) 4.8 - 10.8 X10*3/uL [facility] Red Blood Count 4.47 4.20 - 5.50 X10*6/uL [facility] Hemoglobin 12.7 12.0 - 16.0 g/dl [facility] Hematocrit 38.1 37.0 - 47.0 % [facility] Mean Corpuscular Volume 85.2 80.0 - 98.0 fL [facility] Mean Corpuscular Hemoglobin 28.4 27.0 - 33.0 pg [facility] Mean Corpuscular HGB Conc 33.3 31.0 - 35.0 g/dl [facility] Red Cell Distribution Width 13.0 11.0 - 16.0 % [facility] Platelet Count 174 160 - 400 X10*3/uL [facility] Mean Platelet Volume 10.1 9.4 - 12.3 fL [facility] Neutrophils Percent Auto 44.1(L) 45 - 73 % [facility] Imm Gran Pct Auto 0.2 0.0 - 0.4 % [facility] Lymphocytes Percent Auto 45.6(H) 20 - 40 % [facility] Monocytes Percent Auto 8.6 2 - 11 % [facility] Eosinophils Percent Auto 1.0 0 - 4 % [facility] Basophils Percent Auto 0.5 0 - 2 % [facility] NRBC Pct Auto 0.0 0.0 - 0.2 /100WBC [facility] Neutrophils Absolute Auto 1.8(L) 2.0 - 8.3 x10*3/uL [facility] Imm Gran Abs Auto 0.01 0.00 - 0.03 X10*3/uL [facility] Lymphocytes Absolute Auto 1.9 1.2 - 4.9 X10*3/uL [facility] Monocytes Absolute Auto 0.4 0.1 - 1.2 X10*3/uL [facility] Eosinophils Absolute Auto 0.0 0.0 - 0.4 X10*3/uL [facility] Basophils Absolute Auto 0.0 0.0 - 0.2 X10*3/uL [facility] NRBC Abs Auto 0.000 0.0 - 0.012 X10*3/uL [facility] 12/24/2024 4:48 PM EST 12/24/2024 4:51 PM EST us Generic External Data Provider LAB BLOOD ORDERAB LES Final Result [facility] [address] [place] [phone] * Partial Thromboplastin Time, Activated (APTT) (12/24/2024 4:48 PM EST) Partial Thromboplastin Time 31.2 26.0 - 36.8 SEC [facility] Comment:For information rega rding the monitoring of direct thrombininhibitors, please refer to Pharmacy. 12/24/2024 4:48 PM EST 12/24/2024 4:51 PM EST Generic External Data Provider LAB BLOOD ORDERAB LES Final Result Performing Organization Address City/[facility]/ZIP Co de Phone Number [facility] [address] [place] [address] [phone] * Prothrombin Time-INR (12/24/2024 4:48 PM EST) Prothrombin Time 11.7 10.9 - 12.4 SEC [facility] INTERNATIONAL NORM RATIO 1.0 0.9 - 1.1 [facility] Comment:INTERNATIONAL NORMAL IZED RATIO (INR) REFERENCE RANGES Reference RangeFor patients not on anticoagulant therapy: 0.9 - 1.1INR ranges for oral anticoagulanttherapy:For prevention and treatment of venous thrombosis and pulmonary embolism: 2.0 - 3.0For acute myocardial infarction with aspirin therapy: 2.0 - 3.0For acute myocardial infarction without aspirin therapy: 3.0 - 4.0For patients with mechanical prosthetic heart valves: 2.5 - 3.5 12/24/2024 4:48 PM EST 12/24/2024 4:51 PM EST [employer] External Data Provider LAB BLOOD ORDERAB LES Final Result Performing Organization Address [facility]/ZIP Co de Phone Number [facility] [address] [place] [address] [phone] * hCG, Total, Quantitative (12/24/2024 4:48 PM EST) HCG Quantitative <2 mIU/mL [facility] Comment:Weeks post LMP Appro ximate hCG(Last Menstrual Period) Range (mIU/ml)3 - 4 weeks 9 - 1304 - 5 weeks 75 - 2,6005 - 6 weeks 850 - 20,8006 - 7 weeks 4000 - 100,2007 - 12 weeks 11,500 - 289,66300 - 16 weeks 18,300 - 137,43204 - 29 weeks (2nd trimester) 1,400 - 53,90925 - 41 weeks (3rd trimester) 940 - 60,000The Keys B- hCG assay is used for the early detection ofpregnancy; it cannot be used to diagnose any conditionunrelated to . If a B-hCG level is not supportedby the clinical evidence, results should be confirmed by analternative method (qualitative urine hCG, for example). 12/24/2024 4:48 PM EST 12/24/2024 4:51 PM EST Generic External Data Provider LAB BLOOD ORDERAB LES Final Result Performing Organization Address [facility] Co de Phone Number [facility] [address] [place] [phone] * Magnesium (12/24/2024 4:48 PM EST) Magnesium 1.7 1.6 - 2.6 mg/dL [facility] 12/24/2024 4:4 8 PM EST 12/24/2024 4:51 PM EST Generic External Data Provider LAB BLOOD ORDERAB LES Final Result Performing Organization Address [facility] de Phone Number [facility] [address] [place] [phone] * (ABNORMAL) Comprehensive Metabolic Panel (12/24/2024 4:48 PM EST) Sodium 139 135 - 145 mmol/L [facility] Potassium 3.6 3.3 - 5.1 mmol/L [facility] Chloride 108 96 - 108 mmol/L [facility] Carbon Dioxide 25 22 - 29 mmol/L [facility] Anion Gap 10(L) 12 - 20 [facility] Urea Nitrogen (BUN) 9 9 - 16 mg/dL [facility] Creatinine, Serum 0.71 0.5 - 1.4 mg/dL [facility] Creatinine Clr Calc Pharmacy 97.4 [facility] Comment:Provided height and weight: 157.48 cm,63.1 kg.eGFR (calculated from the MDRD study equation) and eCrCl(calculated from the Cockcroft-Gault equation) are based ondifferent parameters and may not yield comparable results.If eCrCl result is absurd, please check patient'sheight/weight. Estimated Glomerular Filt Rate >60 [facility] Comment:Chronic Kidney Disea se: Estimated GFR < 60 mL/min/1.79k4Piyigy Kidney Disease: Estimated GFR < 15 mL/min/1.73m2 Glucose 69 60 - 115 mg/dL [facility] Calcium 8.6 8.4 - 10.2 mg/dL [facility] Bilirubin, Total 0.2 0.0 - 1.0 mg/dL [facility] Aspartate Amino Transferase 20 5 - 31 U/L [facility] Alanine Aminotransferase 10 0 - 31 U/L [facility] Total Protein 7.2 6.5 - 8.0 g/dL [facility] Albumin Level 3.4(L) 3.5 - 5.0 g/dL [facility] Alkaline Phosphatase 58 39 - 117 U/L [facility] 12/24/2024 4:48 PM EST 12/24/2024 4:51 PM EST us Generic External Data Provider LAB BLOOD ORDERAB LES Final Result [facility] [address] [place] [phone] * Hepatitis C Antibody with Reflex to HCV, RNA, Quantitative, Real-Time PCR (01/22/2024 9:13 AM EST) Hepatitis C Antibody Nonreactive Nonreactive [facility] Comment:Antibodies to HCV no t detected; does not exclude early acuteHCV infection. Blood Venous blood specimen / Unknown 01/22/2024 9:13 AM EST 01/22/2024 11:29 AM EST us Eun Velasco MD LAB BLOOD ORDERAB LES Final Result Performing Organization Address [facility] Co de Phone Number [facility] [address] [place] [phone] * HIV-1/2 Antigen and Antibodies, Fourth Generation, with Reflexes (01/22/2024 9:13 AM EST) [facility] HIV AB/AG Nonreactive Nonreactive [facility] Comment:HIV-1 p24 Ag and/or HIV-1/HIV-2 Ab not detected.A test result that is nonreactive does not exclude thepossibility of exposure to or infection with HIV-1 and/orHIV-2. Nonreactive results in this assay for individualswith prior exposure to HIV-1 and/or HIV-2 may be due toantigen and antibody levels that are below the limit ofdetection of this assay.The SeamBLiSS HIV Ag/Ab Combo assay result andsupplemental assay results should be interpreted inconjunction with the patient's clinical presentation,history and other laboratory results. If the results areinconsistent with clinical evidence, additional testing issuggested to confirm the result. Blood Venous blood specimen / Unknown 01/22/2024 9:13 AM EST 01/22/2024 11:29 AM EST us Eun Velasco MD LAB BLOOD ORDERAB LES Final Result Performing Organization Address City/[facility]/ZIP Co de Phone Number [facility] [address] [place] [phone] from Last 3 Months or Most Recently Relevant to Health Maintenance Insurance [facility] C3 Care Teams Spinneret Cleaner Relationship Specialty Start Date End Date Whit Adkins MD [address] [place] [phone] PCP - General Family Medicine 07/01/17
--- OUTSIDE RECORDS SUMMARY | 2025-03-19 16:16 | XMS_ITS | Encounter Summary ---
Author Organization [employer] Address [address] [place] [address] Care Team Providers Care Mechanical System Technician Name Role Phone Whit Adkins MD Primary Care Provider + Encounter Details Date Type Department Care Team ([facility] st Contact Info) Description 01/13/2024 Telephone [facility] [address] [place], [place] [phone] Whit Adkins MD [address] [place] [address] Social History Tobacco Use Types Packs/Day Years [...] documented as of this encounter Care Teams Mechanical System Technician Relationship Specialty Start Date End Date Whit Adkins MD [address] [place] [phone] PCP - General Family Medicine 07/01/17 documented as of this encounter
--- OUTSIDE RECORDS SUMMARY | 2025-03-19 16:16 | XMS_ITS | Encounter Summary ---
Author Organization [employer] Address [address] [facility] [address] [place] [address] Care Team Providers Care Cable Strander Name Role Phone Whit Adkins MD Primary Care Provider + Encounter Details Date Type Department Care Team ([facility] Contact Info) Description 05/03/2024 Orders Only [facility] [address] [place], [place] [phone] Barbara Muir MD [address], [place] [phone] Bacterial vaginosis (Primary Dx) Social History Tobacco Use Types Packs/Day Years [...] documented as of this encounter Visit Diagnoses Diagnosis Bacterial vaginosis- Primary Unspecified vaginitis and vulvovaginitis documented in this encounter Additional Health Concerns Assessment Noted Time PHQ-9 Depression Total Score: 0 01/12/20 24 9:11 AM EST documented as of this encounter Care Teams Cable Strander Relationship Specialty Start Date End Date Whit Adkins MD [address] [place] [phone] PCP - General Family Medicine 07/01/17 documented as of this encounter
[2025-03-19 16:18] LABS: Basophils Percent Auto 0.3 % (0-2); Eosinophils Absolute Auto 0.1 X10*3/uL (0.0-0.4); Hematocrit 39.3 % (37.0-47.0); Hemoglobin 13.4 g/dl (12.0-16.0); Imm Gran Abs Auto 0.01 X10*3/uL (0.00-0.03); Imm Gran Pct Auto 0.2 % (0.0-0.4); Lymphocytes Percent Auto 34.3 % (20-40); Mean Corpuscular HGB Conc 34.1 g/dl (31.0-35.0); Mean Corpuscular Hemoglobin 29.1 pg (27.0-33.0); Mean Corpuscular Volume 85.4 fL (80.0-98.0); Mean Platelet Volume 9.7 fL (9.4-12.3); Monocytes Absolute Auto 0.4 X10*3/uL (0.1-1.2); Monocytes Percent Auto 7.6 % (2-11); Neutrophils Absolute Auto 3.3 x10*3/uL (2.0-8.3); Neutrophils Percent Auto 56.6 % (45-73); Platelet Count 189 X10*3/uL (160-400); Red Cell Distribution Width 12.8 % (11.0-16.0); White Blood Count 5.8 X10*3/uL (4.8-10.8)
[2025-03-19 16:42] LABS: Alanine Aminotransferase 11 U/L (0-31); Albumin Level 3.4 g/dL (3.5-5.0); Anion Gap 11 (12-20); Aspartate Amino Transferase 22 U/L (5-31); Bilirubin Direct < 0.2 mg/dL (0.0-0.5); Bilirubin Total 0.1 mg/dL (0.0-1.0); Blood Urea Nitrogen 8 mg/dL (9-16); Calcium 8.3 mg/dL (8.4-10.2); Carbon Dioxide 25 mmol/L (22-29); Chloride 107 mmol/L (96-108); Creatinine Clr Calc Pharmacy 104.4; Estimated Glomerular Filt Rate > 60; Glucose Random 100 mg/dL (60-115); Lipase 25 U/L (8-78); Potassium 3.8 mmol/L (3.3-5.1); Sodium 139 mmol/L (135-145)
[2025-03-19 16:44] LABS: Appearance Urine Clear; Color Urine Yellow; Glucose Urine UA Negative (Negative); Leukocyte Esterase Urine Negative (Negative); Nitrite Urine Negative (Negative); UMIC TRIGGER UACC YES; Urine Blood Small (1+) (Negative); Urine Ketones Trace mg/dL (Negative); Urine Protein 30 (1+) mg/dL (Neg-Trace)
[2025-03-19 16:55] LABS: Troponin-I High Sensitivity < 2.7 ng/L (<3.5-17.0)
[2025-03-19 17:09] LABS: HCG Quantitative < 2 mIU/mL
[2025-03-19 17:12] LABS: Influenza A PCR NEGATIVE (Negative); Influenza B PCR NEGATIVE (Negative); Resp Syncy Virus RNA Qual PCR NEGATIVE (Negative); SARS COV2 PCR INHOUSE NEGATIVE (Negative)
[2025-03-19 17:14] LABS: Alkaline Phosphatase 64 U/L (39-117)
[2025-03-19 17:41] LABS: Bacteria Urine 1+ (None Seen); RBC Urine 0-2 /HPF (0-2); Squamous Epithelial Cell Urine 0-2 /HPF (0-2); WBC Urine 0-5 /HPF (0-5)
[2025-03-19 17:42] LABS: Hyaline Casts Urine 0-2 /LPF (0-2)
[2025-03-19 17:58] LABS: CDiff Gene PCR NEGATIVE (Negative)
[2025-03-19 18:04] VITALS: BP 87/54; PULSE 69; RESP 16; O2SAT 98
[2025-03-19 18:07] VITALS: BP 104/61; PULSE 77
[2025-03-19 18:12] VITALS: BP 101/64; PULSE 79
[2025-03-19] MEDS: Famotidine/PF 20 MG/2 ML VIAL IVPUSH (19:04)
[2025-03-19] MEDS: ondansetron HCL 4 MG/2 ML VIAL IVPUSH (19:04)
[2025-03-19] MEDS: 0.9 % Sodium Chloride 1,000 ML 999 ML IV (19:05)
--- NOTE | 2025-03-19 19:11 | PC.NURSE ---
20G placed in left ac, pt medicated per mar, tolerated well. pt denies pain at this time.
[2025-03-19 19:21] VITALS: BP 95/47; PULSE 70; RESP 16; TEMP 36.1; O2SAT 98
--- NOTE | 2025-03-19 19:51 | PC.NURSE ---
pt tolerated po challenge well, pt reports she is feeling better
[2025-03-19 21:18] VITALS: BP 110/78; PULSE 78; RESP 15; TEMP 36.9; O2SAT 98
== END 2025-03-19 21:18 | disposition home or self-care (01) ==
PROVIDERS: Physician Assistant Medical; Emergency Provider Emergency Medicine; PCP Internal Medicine
DX: K52.9 Noninfective gastroenteritis and colitis, unspecified (principal); R11.2 Nausea with vomiting, unspecified; R42 Dizziness and giddiness; M79.10 Myalgia, unspecified site; R50.9 Fever, unspecified; Z03.818 Encounter for observation for suspected exposure to other biological agents ruled out; Z79.899 Other long term (current) drug therapy
CPT/HCPCS: 0241U; 36415; 80048; 80076; 81001; 83690; 83735; 84484; 84702; 85025; 87493; 87507; 93005; 96361; 96374; 96375; 99284; 99285; J1308; J2405

== ENCOUNTER → 2025-03-19 15:59 | Outpatient (BNV) | payer MEDICAID, SELFPAY | PROVIDERS: Emergency Provider Emergency Medicine; PCP Internal Medicine; Visit Provider Internal Medicine | DX: R42 Dizziness and giddiness (principal) | CPT/HCPCS: 93010 ==